=== PATIENT | male | born 1940 | race Caucasian/White ===

== ENCOUNTER 2017-07-21 09:25 | Outpatient (CLI) | payer MEDICARE ==
[2017-07-21] MEDS ORDERED: CEPH500C2 PO (10:31)
[2017-07-21] MEDS ORDERED: SULF-14 PO (10:32)
[2017-07-21] MEDS ORDERED: MUPI22OI30 TOP (10:33)
[2017-07-21] MEDS ORDERED: COU7.5T PO (10:36)
[2017-07-21] MEDS ORDERED: OLME40TA13 PO (10:37)
[2017-07-21] MEDS ORDERED: MELA3TAB PO (10:39)
== END 2017-07-21 10:47 | disposition home or self-care (01) ==
LOC: WOUND CARE 09:25 → EDSTATUS 10:30 → WOUND CARE 10:47
PROVIDERS: ATTEND Surgery
DX: L97.211 Non-pressure chronic ulcer of right calf limited to breakdown of skin (principal); L97.511 Non-pressure chronic ulcer of other part of right foot limited to breakdown of skin; L97.811 Non-pressure chronic ulcer of other part of right lower leg limited to breakdown of skin; L98.491 Non-pressure chronic ulcer of skin of other sites limited to breakdown of skin; L03.115 Cellulitis of right lower limb; I10 Essential (primary) hypertension; Z86.718 Personal history of other venous thrombosis and embolism; G62.9 Polyneuropathy, unspecified; I87.2 Venous insufficiency (chronic) (peripheral)
CPT/HCPCS: 99215; A6223

== ENCOUNTER 2017-07-29 10:13 | Day surgery (SDC) | payer MEDICARE ==
[~2017-07-29 10:13] MED LIST: CEPH500C2 PO; COU7.5T PO; MELA3TAB PO; MUPI22OI30 TOP; OLME40TA13 PO; SULF-14 PO
[2017-07-29] MEDS ORDERED: silver sulfadiazine cream 50gm TP ONE (11:01)
== END 2017-07-29 11:22 | disposition home or self-care (01) ==
LOC: WOUND CARE 10:13
PROVIDERS: ATTEND Surgery
DX: L97.211 Non-pressure chronic ulcer of right calf limited to breakdown of skin (principal); L97.511 Non-pressure chronic ulcer of other part of right foot limited to breakdown of skin; L97.811 Non-pressure chronic ulcer of other part of right lower leg limited to breakdown of skin; L98.491 Non-pressure chronic ulcer of skin of other sites limited to breakdown of skin; L03.115 Cellulitis of right lower limb; I10 Essential (primary) hypertension; Z86.718 Personal history of other venous thrombosis and embolism; G62.9 Polyneuropathy, unspecified; I87.2 Venous insufficiency (chronic) (peripheral)
CPT/HCPCS: 97597; A6223; A6441

== ENCOUNTER 2017-08-06 10:15 | Outpatient (CLI) | payer MEDICARE | END 2017-08-06 10:48 | disposition home or self-care (01) | LOC: WOUND CARE 10:15 | PROVIDERS: ATTEND Surgery | DX: L97.211 Non-pressure chronic ulcer of right calf limited to breakdown of skin (principal); I87.2 Venous insufficiency (chronic) (peripheral); L03.115 Cellulitis of right lower limb; G62.9 Polyneuropathy, unspecified; I10 Essential (primary) hypertension; Z86.718 Personal history of other venous thrombosis and embolism | CPT/HCPCS: 99215 ==

== ENCOUNTER 2017-10-12 17:30 | Observation (INO) | payer MEDICARE ==
[~2017-10-12] VITALS: Ht 195.6 cm; Wt 111.4 kg
[2017-10-12] MEDS ORDERED: normal saline 1000ML IV soln IVB ONE (18:30)
[2017-10-12] MEDS ORDERED: ondansetron/PF 4mg/2ml inj IV ONE (18:30)
[2017-10-12 18:33] LABS: BASOPHILS # (AUTO) 0.1 X10'3 (0-0.2); BASOPHILS % (AUTO) 0.5 % (0-1); EOSINOPHILS # (AUTO) 0.1 X10'3 (0-0.9); EOSINOPHILS % (AUTO) 1.3 % (0-6); HEMATOCRIT 41.9 % (42.0-52.0); HEMOGLOBIN 14.4 g/dl (14.0-17.9); LYMPHOCYTES # (AUTO) 3.9 X10'3 (1.1-4.8); LYMPHOCYTES % (AUTO) 37.2 % (21-51); MEAN CORPUSCULAR HGB CONC 34.3 % (33.0-36.5); MEAN CORPUSCULAR VOLUME 93.1 FL (78-98); MEAN PLATELET VOLUME 7.6 FL (7.4-10.4); MONOCYTES # (AUTO) 0.8 X10'3 (0-0.9); MONOCYTES % (AUTO) 7.4 % (2-12); NEUTROPHILS # (AUTO) 5.6 X10'3 (1.8-7.7); NEUTROPHILS % (AUTO) 53.6 % (42-75); PLATELET COUNT 236 X10'3 (140-440); RED CELL DISTRIBUTION WIDTH 13.6 % (11.5-14.5); WHITE BLOOD COUNT 10.4 X10'3 (4.5-11.0)
[2017-10-12 18:41] LABS: INR 1.1 INR; PARTIAL THROMBOPLASTIN TIME 27 SECONDS (22-32); PROTHROMBIN TIME 11.3 SECONDS (9.0-12.0)
[2017-10-12] MEDS ORDERED: iohexol 350MG/ML 100ml bottle IV ONE (18:44)
[2017-10-12 18:55] LABS: ALANINE AMINOTRANSFERASE 37 U/L (12-78); ALBUMIN 3.8 G/DL (3.4-5.0); ALBUMIN/GLOBULIN RATIO 1.3 (1.1-1.5); ALKALINE PHOSPHATASE 33 IU/L (46-116); ANION GAP 6 (8-16); ASPARTATE AMINO TRANSFERASE 18 U/L (10-37); BILIRUBIN,TOTAL 0.7 MG/DL (0.1-1.0); BLOOD UREA NITROGEN 19 MG/DL (7-18); BUN/CREATININE RATIO 12.9 (5.4-32.0); CALCIUM 8.7 MG/DL (8.5-10.1); CHLORIDE 96 MMOL/L (99-107); CREATININE 1.47 MG/DL (0.60-1.10); GLUCOSE 105 MG/DL (70-104); POTASSIUM 4.3 MMOL/L (3.5-5.1); SODIUM 131 MMOL/L (135-145); TOTAL CARBON DIOXIDE 29.5 MMOL/L (24-32); TOTAL PROTEIN 6.7 G/DL (6.4-8.2); eGFR 47 ML/MIN
[2017-10-12] MEDS ORDERED: WARF10TA50 PO (20:27)
[2017-10-12] MEDS ORDERED: WARF2TAB PO (20:27)
[2017-10-12] MEDS ORDERED: OLME40TA13 PO (20:29)
[2017-10-12] MEDS ORDERED: AMLO2.5T2 PO ×2 (20:29→20:32)
[2017-10-12] MEDS ORDERED: OLME20TA14 PO (20:31)
[2017-10-12] MEDS: normal saline 1000ml 1,000 ML IV SCH (20:36)
[2017-10-12] MEDS ORDERED: magnesium hydroxide 30ml (MOM) UD suspension PO PRN (20:40)
[2017-10-12] MEDS ORDERED: acetaminophen 325mg tablet PO PRN ×2 (20:40)
[2017-10-12] MEDS ORDERED: HYDROcodone/acetaminophen 5mg/325mg tablet PO PRN (20:40)
[2017-10-12] MEDS ORDERED: mag hydrox/Alum hydrox/simeth 30ml oral suspension PO PRN (20:40)
[2017-10-12] MEDS ORDERED: ondansetron/PF 4mg/2ml inj IV PRN (20:40)
[2017-10-12 22:28] VITALS: BP 133/69
[2017-10-13] VITALS (12 sets, daily range): BP systolic 124–171; BP diastolic 54–86
[2017-10-13 05:23] LABS: BASOPHILS % (AUTO) 0.4 % (0-1); EOSINOPHILS # (AUTO) 0.1 X10'3 (0-0.9); EOSINOPHILS % (AUTO) 1.6 % (0-6); HEMOGLOBIN 13.5 g/dl (14.0-17.9); LYMPHOCYTES # (AUTO) 1.7 X10'3 (1.1-4.8); LYMPHOCYTES % (AUTO) 26.6 % (21-51); MEAN CORPUSCULAR HEMOGLOBIN 32.3 PG (27.0-31.0); MEAN CORPUSCULAR HGB CONC 34.6 % (33.0-36.5); MEAN CORPUSCULAR VOLUME 93.2 FL (78-98); MEAN PLATELET VOLUME 7.5 FL (7.4-10.4); MONOCYTES # (AUTO) 0.6 X10'3 (0-0.9); MONOCYTES % (AUTO) 9.5 % (2-12); NEUTROPHILS # (AUTO) 3.9 X10'3 (1.8-7.7); NEUTROPHILS % (AUTO) 61.9 % (42-75); PLATELET COUNT 194 X10'3 (140-440); RED BLOOD COUNT 4.19 X10'6 (4.70-6.10); RED CELL DISTRIBUTION WIDTH 14.1 % (11.5-14.5); WHITE BLOOD COUNT 6.3 X10'3 (4.5-11.0)
[2017-10-13 05:34] LABS: INR 1.1 INR; PROTHROMBIN TIME 11.6 SECONDS (9.0-12.0)
[2017-10-13 05:40] LABS: ALBUMIN 3.2 G/DL (3.4-5.0); ANION GAP 6 (8-16); BLOOD UREA NITROGEN 13 MG/DL (7-18); CALCIUM 8.8 MG/DL (8.5-10.1); CHLORIDE 102 MMOL/L (99-107); GLUCOSE 129 MG/DL (70-104); POTASSIUM 3.7 MMOL/L (3.5-5.1); SODIUM 136 MMOL/L (135-145); TOTAL CARBON DIOXIDE 27.8 MMOL/L (24-32); eGFR 73 ML/MIN
[2017-10-13] MEDS: normal saline 1000ml 1,000 ML IV SCH ×2 (05:56→16:36)
[2017-10-13] MEDS ORDERED: warfarin 10mg tablet PO SCH (08:00)
[2017-10-13] MEDS ORDERED: warfarin 1mg tablet PO SCH (08:00)
[2017-10-13] MEDS: losartan 50mg tablet PO SCH ×2 (08:30→20:06)
[2017-10-13] MEDS ORDERED: gabapentin 100mg capsule PO ONE (19:50)
[2017-10-13] MEDS: amLODIPine 2.5mg tablet PO SCH (20:06)
[2017-10-13] MEDS: warfarin 1mg tablet PO SCH (21:28)
[2017-10-13] MEDS: warfarin 10mg tablet PO SCH (21:28)
[2017-10-14] MEDS: normal saline 1000ml 1,000 ML IV SCH (02:36)
[2017-10-14 03:00] VITALS: BP 132/56
[2017-10-14 05:12] LABS: BASOPHILS % (AUTO) 0.4 % (0-1); EOSINOPHILS # (AUTO) 0.1 X10'3 (0-0.9); EOSINOPHILS % (AUTO) 2.3 % (0-6); HEMATOCRIT 40.1 % (42.0-52.0); LYMPHOCYTES # (AUTO) 1.8 X10'3 (1.1-4.8); MEAN CORPUSCULAR HEMOGLOBIN 32.2 PG (27.0-31.0); MEAN CORPUSCULAR HGB CONC 34.9 % (33.0-36.5); MEAN CORPUSCULAR VOLUME 92.3 FL (78-98); MEAN PLATELET VOLUME 7.4 FL (7.4-10.4); MONOCYTES # (AUTO) 0.5 X10'3 (0-0.9); MONOCYTES % (AUTO) 7.9 % (2-12); NEUTROPHILS # (AUTO) 3.8 X10'3 (1.8-7.7); NEUTROPHILS % (AUTO) 60.4 % (42-75); PLATELET COUNT 187 X10'3 (140-440); RED BLOOD COUNT 4.34 X10'6 (4.70-6.10); RED CELL DISTRIBUTION WIDTH 13.7 % (11.5-14.5); WHITE BLOOD COUNT 6.2 X10'3 (4.5-11.0)
[2017-10-14 05:22] LABS: INR 1.2 INR; PROTHROMBIN TIME 12.1 SECONDS (9.0-12.0)
[2017-10-14 05:31] LABS: ALBUMIN 3.3 G/DL (3.4-5.0); ANION GAP 6 (8-16); BLOOD UREA NITROGEN 9 MG/DL (7-18); BUN/CREATININE RATIO 10.6 (5.4-32.0); CALCIUM 8.4 MG/DL (8.5-10.1); CHLORIDE 102 MMOL/L (99-107); CREATININE 0.85 MG/DL (0.60-1.10); GLUCOSE 95 MG/DL (70-104); POTASSIUM 3.9 MMOL/L (3.5-5.1); SODIUM 136 MMOL/L (135-145); TOTAL CARBON DIOXIDE 28.1 MMOL/L (24-32); eGFR 88 ML/MIN
[2017-10-14 07:00] VITALS: BP 159/83
[2017-10-14] MEDS: losartan 50mg tablet PO SCH ×2 (08:50→19:46)
[2017-10-14] MEDS: amLODIPine 2.5mg tablet PO SCH (08:51)
[2017-10-14 11:00] VITALS: BP 164/70
[2017-10-14 15:00] VITALS: BP 147/75
[2017-10-14] MEDS ORDERED: iohexol 350MG/ML 100ml bottle IV ONE (15:37)
[2017-10-14] MEDS ORDERED: enoxaparin 100mg/ml syringe SUBCUT STA (18:06)
[2017-10-14] MEDS ORDERED: ENOX100S3 SQ (19:00)
[2017-10-14] MEDS: warfarin 1mg tablet PO SCH (19:45)
[2017-10-14] MEDS: warfarin 10mg tablet PO SCH (19:46)
[2017-10-16 16:23] LABS: OCCULT BLOOD STOOL NEGATIVE (Neg)
== END 2017-10-14 20:45 | disposition home or self-care (01) ==
LOC: ER 17:32 → MERGE 20:36 → ED HOLD 20:36 → PCU 3S 21:50
PROVIDERS: ADMIT Hospitalist; ATTEND Hospitalist
DX: R55 Syncope and collapse (principal); E86.0 Dehydration; I10 Essential (primary) hypertension; G62.9 Polyneuropathy, unspecified; E87.1 Hypo-osmolality and hyponatremia; N28.9 Disorder of kidney and ureter, unspecified; Z86.718 Personal history of other venous thrombosis and embolism; Z79.01 Long term (current) use of anticoagulants; Z86.711 Personal history of pulmonary embolism
CPT/HCPCS: 36415; 70496; 70498; 71045; 71275; 74174; 80048; 80053; 82272; 84484; 85025; 85610; 85730; 87070; 93005; 93306; 93880; 96361; 96372; 96374; 99285; A6222; A6449; G0378; J1650; J2405; J7030; Q9967

== ENCOUNTER 2018-04-10 12:58 | Emergency (ER) | payer MEDICARE ==
[~2018-04-10] VITALS: Ht 185.4 cm; Wt 122.0 kg
[~2018-04-10 12:58] MED LIST changes: +AMLO2.5T2 PO; +OLME20TA14 PO; +WARF10TA50 PO; +WARF2TAB PO
[2018-04-10] MEDS ORDERED: normal saline 1000ML IV soln IV ONE (13:05)
[2018-04-10] MEDS ORDERED: oxyCODONE/APAP 10/325mg tablet PO ONE (13:10)
[2018-04-10 13:31] LABS: BASOPHILS % (AUTO) 0.2 % (0-1); EOSINOPHILS # (AUTO) 0.1 X10'3 (0-0.9); HEMATOCRIT 40.8 % (42.0-52.0); HEMOGLOBIN 13.6 g/dl (14.0-17.9); LYMPHOCYTES # (AUTO) 0.8 X10'3 (1.1-4.8); LYMPHOCYTES % (AUTO) 12.1 % (21-51); MEAN CORPUSCULAR HEMOGLOBIN 31.3 PG (27.0-31.0); MEAN CORPUSCULAR HGB CONC 33.4 % (33.0-36.5); MEAN CORPUSCULAR VOLUME 93.6 FL (78-98); MONOCYTES # (AUTO) 0.4 X10'3 (0-0.9); MONOCYTES % (AUTO) 6.1 % (2-12); NEUTROPHILS # (AUTO) 5.2 X10'3 (1.8-7.7); NEUTROPHILS % (AUTO) 79.6 % (42-75); PLATELET COUNT 211 X10'3 (140-440); RED BLOOD COUNT 4.35 X10'6 (4.70-6.10); RED CELL DISTRIBUTION WIDTH 13.1 % (11.5-14.5); WHITE BLOOD COUNT 6.6 X10'3 (4.5-11.0)
[2018-04-10 13:49] LABS: ANION GAP 7 (8-16); BLOOD UREA NITROGEN 13 MG/DL (7-18); BUN/CREATININE RATIO 11.7 (5.4-32.0); CHLORIDE 101 MMOL/L (99-107); CREATININE 1.11 MG/DL (0.60-1.10); GLUCOSE 124 MG/DL (70-104); POTASSIUM 4.5 MMOL/L (3.5-5.1); SODIUM 135 MMOL/L (135-145); TOTAL CARBON DIOXIDE 26.8 MMOL/L (24-32)
[2018-04-10 13:50] LABS: ALANINE AMINOTRANSFERASE 37 U/L (12-78); ALBUMIN 3.3 G/DL (3.4-5.0); ALBUMIN/GLOBULIN RATIO 1.3 (1.1-1.5); ALKALINE PHOSPHATASE 32 IU/L (46-116); ASPARTATE AMINO TRANSFERASE 17 U/L (10-37); BILIRUBIN,TOTAL 0.7 MG/DL (0.1-1.0); CALCIUM 8.1 MG/DL (8.5-10.1); TOTAL PROTEIN 5.8 G/DL (6.4-8.2); eGFR 64 ML/MIN
[2018-04-10 13:56] LABS: TROPONIN I < 0.04 NG/ML (0.0-0.05)
[2018-04-10 14:02] LABS: INR 2.6 INR; PROTHROMBIN TIME 25.4 SECONDS (9.0-12.0)
--- NOTE | 2018-04-10 14:49 | NUR ---
DR BOYD SAYS UA NOT NECESSARY AT THIS TIME,.
[2018-04-10 16:39] LABS: CLARITY,URINE CLEAR (Clear); COLOR,URINE YELLOW (Yellow); GLUCOSE, URINE NEGATIVE (Neg); KETONES,URINE NEGATIVE (Neg); LEUKOCYTE ESTERASE ,URINE NEGATIVE (Neg); NITRITES, URINE NEGATIVE (Neg); OCCULT BLOOD,URINE NEGATIVE (Neg); PROTEIN,URINE NEGATIVE (Neg); UROBILINOGEN,URINE 0.2 E.U/dL (0.2-1.0)
[2018-04-10 16:41] LABS: UA COLLECTION TYPE CLN CATCH MIDSTREAM
[2018-04-10 16:50] VITALS: BP 138/70
[2018-04-10] MEDS ORDERED: bacitracin 15gm ointment TP ONE (17:25)
== END 2018-04-10 17:57 | disposition home or self-care (01) ==
LOC: ER 12:59
DX: S12.121A Other nondisplaced dens fracture, initial encounter for closed fracture (principal); S00.81XA Abrasion of other part of head, initial encounter; I10 Essential (primary) hypertension; G89.29 Other chronic pain; Z86.718 Personal history of other venous thrombosis and embolism; Z98.890 Other specified postprocedural states; Z79.01 Long term (current) use of anticoagulants; Z79.899 Other long term (current) drug therapy; W18.39XA Other fall on same level, initial encounter; Y93.89 Activity, other specified; Y92.89 Other specified places as the place of occurrence of the external cause; Y99.8 Other external cause status
CPT/HCPCS: 36415; 70450; 71045; 72125; 80053; 81003; 83735; 83880; 84145; 84484; 85025; 85610; 87502; 87503; 93005; 96360; 96361; 99284; J7030; 72141

== ENCOUNTER 2018-05-28 11:19 | Outpatient (CLI) | payer MEDICARE | END 2018-05-28 23:59 | disposition home or self-care (01) | LOC: 64 CT 11:19 | PROVIDERS: ATTEND Family Medicine | DX: I05.8 Other rheumatic mitral valve diseases (principal); I10 Essential (primary) hypertension; R91.1 Solitary pulmonary nodule; R91.8 Other nonspecific abnormal finding of lung field; Z98.890 Other specified postprocedural states; Z79.899 Other long term (current) drug therapy | CPT/HCPCS: 71250; 93306 ==

== ENCOUNTER 2019-01-26 18:49 | Emergency (ER) | payer MEDICARE ==
[~2019-01-26] VITALS: Ht 195.6 cm; Wt 113.0 kg
[~2019-01-26 18:49] MED LIST changes: -MELA3TAB PO; +MELA3TAB64 PO
[2019-01-26] MEDS ORDERED: AMOX-419 PO (19:20)
[2019-01-26] MEDS ORDERED: NAPR-56 PO (19:20)
[2019-01-26] MEDS ORDERED: NEOM10DR45 OT (19:20)
[2019-01-26] MEDS ORDERED: HYDR-4383 PO (19:20)
[2019-01-26 19:36] VITALS: BP 149/60
[2019-01-26 19:47] LABS: BASOPHILS # (AUTO) 0.2 X10'3 (0-0.2); BASOPHILS % (AUTO) 1.2 % (0-1); EOSINOPHILS # (AUTO) 0.1 X10'3 (0-0.9); EOSINOPHILS % (AUTO) 1.1 % (0-6); HEMATOCRIT 45.5 % (42.0-52.0); LYMPHOCYTES # (AUTO) 2.3 X10'3 (1.1-4.8); LYMPHOCYTES % (AUTO) 18.1 % (21-51); MEAN CORPUSCULAR HEMOGLOBIN 32.1 PG (27.0-31.0); MEAN CORPUSCULAR HGB CONC 35.1 g/dL (33.0-36.5); MEAN CORPUSCULAR VOLUME 91.6 FL (78-98); MEAN PLATELET VOLUME 8.2 FL (7.4-10.4); MONOCYTES # (AUTO) 0.9 X10'3 (0-0.9); MONOCYTES % (AUTO) 7.5 % (2-12); NEUTROPHILS % (AUTO) 72.1 % (42-75); PLATELET COUNT 193 X10'3 (140-440); RED BLOOD COUNT 4.97 X10'6 (4.70-6.10); RED CELL DISTRIBUTION WIDTH 13.6 % (11.5-14.5); WHITE BLOOD COUNT 12.5 X10'3 (4.5-11.0)
== END 2019-01-26 19:38 | disposition home or self-care (01) ==
LOC: ER 18:50
DX: R04.0 Epistaxis (principal); I10 Essential (primary) hypertension; Z86.711 Personal history of pulmonary embolism; G89.29 Other chronic pain; Z86.718 Personal history of other venous thrombosis and embolism; Z98.890 Other specified postprocedural states; Z79.2 Long term (current) use of antibiotics; Z79.01 Long term (current) use of anticoagulants
CPT/HCPCS: 36415; 85025; 99283

== ENCOUNTER 2019-08-06 17:39 | Emergency (ER) | payer MEDICARE ==
[~2019-08-06] VITALS: Ht 198.1 cm; Wt 113.6 kg
[~2019-08-06 17:39] MED LIST changes: +MELA3TAB39 PO; -MELA3TAB64 PO
--- NOTE | 2019-08-06 18:43 | NUR ---
aSSUMED CARE OF PT FROM TURNER Chang RN. PT IS CALM AND COOPERATIVE AND WITH STABLE VS AND NO FEVER. CORONAVIRUS SWAB COLLECTED JUST PRIOR TO SHIFT CHANGE. AWAITING LAB RESULTS. PT WITH PIV, CXR COMPLETED AND LABS DRAWN INCLUDING BCX AND LACTIC. REMAINIS IN ENHANCED DROPLET PRECAUTIONS.
[2019-08-06 18:53] LABS: ALANINE AMINOTRANSFERASE 22 U/L (12-78); ALBUMIN 3.4 G/DL (3.4-5.0); ALBUMIN/GLOBULIN RATIO 1.4 (1.1-1.5); ALKALINE PHOSPHATASE 46 IU/L (46-116); ANION GAP 5 (8-16); ASPARTATE AMINO TRANSFERASE 15 U/L (10-37); BILIRUBIN,TOTAL 0.8 MG/DL (0.1-1.0); BLOOD UREA NITROGEN 18 MG/DL (7-18); BUN/CREATININE RATIO 20.5 (5.4-32.0); CALCIUM 8.5 MG/DL (8.5-10.1); CHLORIDE 104 MMOL/L (99-107); CREATININE 0.88 MG/DL (0.60-1.10); D-DIMER 0.58 MG/L FEU (0-0.50); GLUCOSE 132 MG/DL (70-104); PARTIAL THROMBOPLASTIN TIME 37 SECONDS (22-32); POTASSIUM 3.8 MMOL/L (3.5-5.1); SODIUM 138 MMOL/L (135-145); TOTAL CARBON DIOXIDE 29.2 MMOL/L (24-32); TOTAL PROTEIN 5.9 G/DL (6.4-8.2); eGFR 84 ML/MIN
[2019-08-06 18:56] LABS: BASOPHILS % (AUTO) 0.6 % (0-1); EOSINOPHILS # (AUTO) 0.1 X10'3 (0-0.9); EOSINOPHILS % (AUTO) 1.9 % (0-6); HEMATOCRIT 39.4 % (42.0-52.0); HEMOGLOBIN 13.2 g/dl (14.0-17.9); LYMPHOCYTES # (AUTO) 1.5 X10'3 (1.1-4.8); LYMPHOCYTES % (AUTO) 22.7 % (21-51); MEAN CORPUSCULAR HEMOGLOBIN 29.9 PG (27.0-31.0); MEAN CORPUSCULAR HGB CONC 33.4 g/dL (33.0-36.5); MEAN CORPUSCULAR VOLUME 89.3 FL (78-98); MEAN PLATELET VOLUME 8.4 FL (7.4-10.4); MONOCYTES # (AUTO) 0.7 X10'3 (0-0.9); MONOCYTES % (AUTO) 9.9 % (2-12); NEUTROPHILS # (AUTO) 4.3 X10'3 (1.8-7.7); NEUTROPHILS % (AUTO) 64.9 % (42-75); PLATELET COUNT 204 X10'3 (140-440); RED BLOOD COUNT 4.41 X10'6 (4.70-6.10); WHITE BLOOD COUNT 6.6 X10'3 (4.5-11.0)
--- NOTE | 2019-08-06 19:21 | NUR ---
MARINA ASHLEY [phone] CELL PHONE
--- NOTE | 2019-08-06 19:26 | NUR ---
LAB CALLING THAT COVID SCREEN NEGATIVE. DR. AMADOR NOTIFIED
--- NOTE | 2019-08-06 19:27 | NUR ---
PT IS A&OX4 AND REPORTS NO PAIN CURRENTLY. HE EXPLAINED THAT HE HAS HAD PNEUMONIA MANY TIMES IN THE PAST AND THAT HE HAS BEEN IN REHAB ([facility]) FOR 4 MONTHS AND HAS BEEN HOME ABOUT 1 MONTH (WHERE HE LIVES WITH HIS ). 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 HIS # [phone] IF ANY FURTHER INFO NEEDED. PTS , MARINA, THEN CALLINIG AND REPORTS SHE HAS LEFT A MESSAGE WITH DR. GARG (PCP) REQUESTING HIM TO CALL DR. AMADOR. FAMILY IS HOPEFUL OF IVABS AND ADMISSION. I UPDATED DR. AMADOR WHO REPORTED HE WILL ORDER AN ECHO AND SUSPECTES HIS ELEVATED PBNP MAY BE THE CAUSE OF HIS SOB. 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
--- NOTE | 2019-08-06 19:55 | NUR ---
ECHO CALLED BACK AT 19:[address] IN
[2019-08-06] MEDS ORDERED: GABA800T11 PO (20:03)
--- NOTE | 2019-08-06 20:23 | NUR ---
ECHOCARDIOGRAM STARTED AT BEDSIDE.
--- NOTE | 2019-08-06 21:06 | NUR ---
DR AMADOR TALKING WITH PT ABOUT CT RESULTS AND PLAN OF CARE. HE REPROTS THE ECHO WAS UNREMARKABLE. PT TO BE GAIT TESTED AND REEVALUATED.
--- NOTE | 2019-08-06 21:24 | NUR ---
DR AMADOR TALKING WITH PT AND HIS ON THE PHONE AT THIS TIME. PT WITH BP 164/89, OTHER VSS. REPORTS NO REMARKABLE FINDINGS. REPORTS HE HAS NOT YET SPOKEN WITH PTS' PCP DR. GARG. PT TEACHING ABOUT ATALECTISIS, WHICH WERE FINDINGS IN THE CT SCAN. PT AMBULATING INDEPENDANTLY WITH WALKER AND REPORTS HE IS AT BASELINE, BUT WITH SOME INCREASED DIZZINESS (WHICH HAS BEEN A RECENT THING) PT ALSO WITH SOME INCREASE IN "TIREDNESS" OVER PAST FEW DAYS.
[2019-08-06 21:45] LABS: CLARITY,URINE CLEAR (Clear); COLOR,URINE YELLOW (Yellow); GLUCOSE, URINE NEGATIVE (Neg); KETONES,URINE NEGATIVE (Neg); LEUKOCYTE ESTERASE ,URINE NEGATIVE (Neg); NITRITES, URINE NEGATIVE (Neg); OCCULT BLOOD,URINE NEGATIVE (Neg); PROTEIN,URINE NEGATIVE (Neg); UROBILINOGEN,URINE 0.2 E.U/dL (0.2-1.0)
[2019-08-06 21:51] LABS: UA COLLECTION TYPE VOIDED
[2019-08-06 22:05] VITALS: BP 154/88
== END 2019-08-06 22:16 | disposition home or self-care (01) ==
LOC: ER 17:40
DX: R53.81 Other malaise (principal); Z20.828 Contact with and (suspected) exposure to other viral communicable diseases; R06.02 Shortness of breath; R50.9 Fever, unspecified; I10 Essential (primary) hypertension; Z87.11 Personal history of peptic ulcer disease; G89.29 Other chronic pain; Z98.890 Other specified postprocedural states; Z87.01 Personal history of pneumonia (recurrent); Z79.01 Long term (current) use of anticoagulants
CPT/HCPCS: 36415; 71045; 71250; 80053; 81003; 83605; 83880; 84145; 85025; 85379; 85610; 85730; 87040; 87635; 93005; 93306; 99285

== ENCOUNTER 2021-05-26 16:53 | Emergency (ER) | payer MEDICARE, OTHER ==
[~2021-05-26] VITALS: Ht 198.1 cm; Wt 116.8 kg
[~2021-05-26 16:53] MED LIST changes: -AMLO2.5T2 PO; -CEPH500C2 PO; -COU7.5T PO; +GABA800T11 PO; -MUPI22OI30 TOP; -OLME20TA14 PO; -OLME40TA13 PO; -SULF-14 PO; -WARF2TAB PO
[2021-05-26] MEDS ORDERED: diphenhydrAMINE 50 mg/ml inj IV ONE (17:05)
[2021-05-26] MEDS ORDERED: methylPREDNISolone sod succ 125mg/2ml vial IV ONE (17:05)
[2021-05-26 17:45] LABS: BASOPHILS # (AUTO) 0.1 X10'3 (0-0.2); BASOPHILS % (AUTO) 0.7 % (0-1); EOSINOPHILS # (AUTO) 0.4 X10'3 (0-0.9); HEMOGLOBIN 14.9 g/dl (14.0-17.9); LYMPHOCYTES # (AUTO) 1.4 X10'3 (1.1-4.8); LYMPHOCYTES % (AUTO) 19.8 % (21-51); MEAN CORPUSCULAR HEMOGLOBIN 31.6 PG (27.0-31.0); MEAN CORPUSCULAR HGB CONC 33.9 g/dL (33.0-36.5); MEAN CORPUSCULAR VOLUME 93.2 FL (78-98); MEAN PLATELET VOLUME 7.8 FL (7.4-10.4); MONOCYTES # (AUTO) 0.4 X10'3 (0-0.9); MONOCYTES % (AUTO) 5.8 % (2-12); NEUTROPHILS % (AUTO) 67.7 % (42-75); PLATELET COUNT 131 X10'3 (140-440); RED BLOOD COUNT 4.72 X10'6 (4.70-6.10); RED CELL DISTRIBUTION WIDTH 14.3 % (11.5-14.5); WHITE BLOOD COUNT 7.3 X10'3 (4.5-11.0)
[2021-05-26] MEDS ORDERED: famotidine/PF 10 mg/ml inj IV ONE (18:05)
[2021-05-26 18:10] LABS: ALANINE AMINOTRANSFERASE 45 U/L (12-78); ALBUMIN 3.2 G/DL (3.4-5.0); ALBUMIN/GLOBULIN RATIO 1.4 (1.1-1.5); ALKALINE PHOSPHATASE 28 IU/L (46-116); ANION GAP 9 (8-16); ASPARTATE AMINO TRANSFERASE 20 U/L (10-37); BLOOD UREA NITROGEN 22 MG/DL (7-18); BUN/CREATININE RATIO 24.7 (5.4-32.0); CALCIUM 8.4 MG/DL (8.5-10.1); CHLORIDE 96 MMOL/L (99-107); CREATININE 0.89 MG/DL (0.60-1.10); GLUCOSE 87 MG/DL (70-104); POTASSIUM 4.6 MMOL/L (3.5-5.1); SODIUM 134 MMOL/L (135-145); TOTAL CARBON DIOXIDE 28.9 MMOL/L (24-32); TOTAL PROTEIN 5.5 G/DL (6.4-8.2); eGFR 82 ML/MIN
[2021-05-26 18:39] VITALS: BP 163/92
[2021-05-26] MEDS ORDERED: HYDR28CR14 TOP ×2 (18:40→18:41)
[2021-05-26] MEDS ORDERED: DEC4T PO ×2 (18:40→18:41)
== END 2021-05-26 19:10 | disposition home or self-care (01) ==
LOC: ER 16:55
DX: B09 Unspecified viral infection characterized by skin and mucous membrane lesions (principal); R21 Rash and other nonspecific skin eruption; R06.02 Shortness of breath; R53.83 Other fatigue; I10 Essential (primary) hypertension; G89.29 Other chronic pain; Z87.01 Personal history of pneumonia (recurrent); Z86.711 Personal history of pulmonary embolism; Z86.718 Personal history of other venous thrombosis and embolism; Z98.890 Other specified postprocedural states; Z79.899 Other long term (current) drug therapy
CPT/HCPCS: 36415; 71045; 80053; 85025; 85651; 86140; 96374; 96375; 99284; J1200; J2930; J3490

== ENCOUNTER 2021-07-20 10:07 | Outpatient (CLI) | payer MEDICARE, OTHER ==
[~2021-07-20 10:07] MED LIST changes: +HYDR28CR14 TOP
== END 2021-07-20 23:59 | disposition home or self-care (01) ==
LOC: RAD 10:07
PROVIDERS: ATTEND Family Medicine
DX: K22.89 Other specified disease of esophagus (principal); R13.10 Dysphagia, unspecified
CPT/HCPCS: 74220